=== PATIENT | male | born 1995 | race African-American/Black ===

== ENCOUNTER 2018-04-04 23:32 | Inpatient (IN) | payer BC, MEDICAID ==
[~2018-04-04] VITALS: Ht 165.1 cm; Wt 62.6 kg
[2018-04-04 23:58] LABS: MONOCYTES # (AUTO) 0.6 K/uL (0.1-1.0)
[2018-04-05] VITALS (7 sets, daily range): BP systolic 128–138; BP diastolic 71–86
[2018-04-05 00:07] LABS: BASOPHILS % (AUTO) 0.4 % (0.0-2.0); EOSINOPHILS % (AUTO) 1.8 % (1.0-6.0); HEMOGLOBIN 17.6 g/dL (13.5-17.5); LYMPHOCYTES # (AUTO) 4.2 K/uL (1.0-4.8); LYMPHOCYTES % (AUTO) 49.5 % (22.0-44.0); MEAN CORPUSCULAR HEMOGLOBIN 29.2 pg (26.0-34.0); MEAN CORPUSCULAR HGB CONC 34.4 G/dL (31.0-37.0); MEAN CORPUSCULAR VOLUME 85 fL (80-100); MONOCYTES % (AUTO) 6.9 % (2.0-9.0); NEUTROPHILS # (AUTO) 3.5 K/uL (1.8-7.7); NEUTROPHILS % (AUTO) 41.4 % (40.0-70.0); PLATELET COUNT (AUTO) 346 K/uL (150-450); RED BLOOD CELL COUNT(AUTO) 6.01 MIL/uL (4.50-5.90); RED CELL DISTRIBUTION WIDTH 12.9 % (11.5-14.5)
[2018-04-05 00:14] LABS: CALCIUM, TOTAL 8.8 mg/dL (8.8-10.5); CREATININE 1.48 mg/dL (0.60-1.30); POTASSIUM 3.6 mmol/L (3.5-5.1)
[2018-04-05 00:17] LABS: ALBUMIN 4.6 g/dL (3.4-5.0); BILIRUBIN,TOTAL 0.9 mg/dL (0.1-1.0); TOTAL PROTEIN, SERUM 8.5 g/dL (6.4-8.2)
[2018-04-05] MEDS ORDERED: HALOPERIDOL 5 MG TABLET PO PRN (00:45)
[2018-04-05 02:32] LABS: AMPHET/METH SCREEN,URINE NEGATIVE (NEGATIVE); BARBITURATE SCREEN, URINE NEGATIVE (NEGATIVE); BENZODIAZEPINES SCREEN,URINE NEGATIVE (NEGATIVE); CANNABINOID SCREEN,URINE NEGATIVE (NEGATIVE); COCAINE SCREEN,URINE NEGATIVE (NEGATIVE); METHADONE SCREEN, URINE NEGATIVE (NEGATIVE); OPIATE SCREEN,URINE NEGATIVE (NEGATIVE)
[2018-04-05 02:33] LABS: PHENCYCLIDINE SCREEN,URINE NEGATIVE (NEGATIVE)
[2018-04-05] MEDS: LORazepam 2 MG TABLET PO PRN (04:22)
[2018-04-05 07:40] LABS: HEMOGLOBIN A1C 5.4 % (4.5-6.2)
[2018-04-05 07:56] LABS: CHOL/HDL RATIO 5.8 (4.2-7.3); CHOLESTEROL 243 mg/dL (131-200); FREE T4 (FREE THYROXINE) 0.91 ng/dL (0.76-1.46); HDL CHOLESTEROL 42 mg/dL (40-60); THYROID STIMULATING HORMONE 1.87 uIU/mL (0.36-3.74); TRIGLYCERIDES 667 mg/dL (15-150)
[2018-04-05] MEDS: CITALOPRAM HYDROBROMIDE 20 MG TABLET PO SCH (12:11)
[2018-04-05] MEDS: SIMVASTATIN 10 MG TABLET PO SCH (20:13)
[2018-04-05] MEDS: ZOLPIDEM TARTRATE 10 MG TABLET PO PRN (20:58)
[2018-04-06 06:52] VITALS: BP 125/70
[2018-04-06 08:02] VITALS: BP 136/72
[2018-04-06] MEDS: CITALOPRAM HYDROBROMIDE 20 MG TABLET PO SCH (08:11)
[2018-04-06 16:19] VITALS: BP 134/78
[2018-04-06] MEDS: ZOLPIDEM TARTRATE 10 MG TABLET PO PRN (20:25)
[2018-04-06] MEDS: SIMVASTATIN 10 MG TABLET PO SCH (20:25)
[2018-04-06] MEDS: LORazepam 2 MG TABLET PO PRN (20:26)
[2018-04-07 06:29] VITALS: BP 130/75
[2018-04-07] MEDS: LORazepam 2 MG TABLET PO PRN (07:59)
[2018-04-07] MEDS: CITALOPRAM HYDROBROMIDE 20 MG TABLET PO SCH (07:59)
[2018-04-07 08:01] VITALS: BP 154/103
[2018-04-07] MEDS ORDERED: SIMV-259 PO (12:49)
[2018-04-07] MEDS ORDERED: CITA-106 PO (12:49)
== END 2018-04-07 13:05 | disposition home or self-care (01) | DRG 881 ==
LOC: EMS 23:33 → B3A 04-05 02:00
PROVIDERS: ADMIT Psychiatry & Neurology Child & Adolescent Psychiatry; ATTEND Psychiatry & Neurology Child & Adolescent Psychiatry
DX: F32.9 Major depressive disorder, single episode, unspecified (principal); N17.9 Acute kidney failure, unspecified; R45.851 Suicidal ideations; E78.5 Hyperlipidemia, unspecified; F41.9 Anxiety disorder, unspecified; R74.0 Nonspecific elevation of levels of transaminase and lactic acid dehydrogenase [LDH]; S61.512A Laceration without foreign body of left wrist, initial encounter; X78.1XXA Intentional self-harm by knife, initial encounter; Y93.89 Activity, other specified; Y92.89 Other specified places as the place of occurrence of the external cause; Y99.8 Other external cause status; Z79.899 Other long term (current) drug therapy
CPT/HCPCS: 80074; 83036; 84439; 84443; 99285; G0480

== ENCOUNTER 2018-05-20 18:19 | Inpatient (IN) | payer BC, MEDICAID ==
[~2018-05-20] VITALS: Ht 167.6 cm; Wt 59.0 kg
[~2018-05-20 18:19] MED LIST: CITA-106 PO; SIMV-259 PO
[2018-05-20 19:06] LABS: BASOPHILS % (AUTO) 0.3 % (0.0-2.0); HEMATOCRIT 45.9 % (41-53); HEMOGLOBIN 15.8 g/dL (13.5-17.5); LYMPHOCYTES # (AUTO) 2.6 K/uL (1.0-4.8); LYMPHOCYTES % (AUTO) 40.3 % (22.0-44.0); MEAN CORPUSCULAR HEMOGLOBIN 29.8 pg (26.0-34.0); MEAN CORPUSCULAR HGB CONC 34.3 G/dL (31.0-37.0); MEAN CORPUSCULAR VOLUME 87 fL (80-100); MONOCYTES # (AUTO) 0.5 K/uL (0.1-1.0); MONOCYTES % (AUTO) 8.3 % (2.0-9.0); NEUTROPHILS # (AUTO) 3.2 K/uL (1.8-7.7); NEUTROPHILS % (AUTO) 49.1 % (40.0-70.0); PLATELET COUNT (AUTO) 289 K/uL (150-450); RED BLOOD CELL COUNT(AUTO) 5.29 MIL/uL (4.50-5.90); RED CELL DISTRIBUTION WIDTH 13.3 % (11.5-14.5)
[2018-05-20 19:44] LABS: ALANINE AMINOTRANSFERASE 92 U/L (12-78); ALBUMIN 4.1 g/dL (3.4-5.0); ALKALINE PHOSPHATASE 130 U/L (46-116); ANION GAP 10 mmol/L (8-16); ASPARTATE AMINOTRANSFERASE 56 U/L (15-37); BILIRUBIN,TOTAL 0.3 mg/dL (0.1-1.0); CALCIUM, TOTAL 8.3 mg/dL (8.8-10.5); CARBON DIOXIDE 24 mmol/L (22-29); CHLORIDE 105 mmol/L (98-107); CREATININE 0.86 mg/dL (0.60-1.30); GLOMERULAR FILTR. RATE CALC > 60 mL/min (>60); GLUCOSE,RANDOM 101 mg/dL (70-110); POTASSIUM 4.2 mmol/L (3.5-5.1); SODIUM SERUM 139 mmol/L (136-145); TOTAL PROTEIN, SERUM 7.7 g/dL (6.4-8.2); UREA NITROGEN, BLOOD 12 mg/dL (7-18)
[2018-05-20] MEDS ORDERED: HALOPERIDOL 5 MG TABLET PO PRN (20:15)
[2018-05-21] VITALS (11 sets, daily range): BP systolic 115–140; BP diastolic 60–87
[2018-05-21] MEDS: ZOLPIDEM TARTRATE 10 MG TABLET PO PRN (03:01)
[2018-05-21] MEDS ORDERED: PNEUMOCOCCAL VACCINE POLYVALENT 0.5 ML VIAL [PPSV23] IM ONE (04:15)
[2018-05-21 08:49] LABS: CHOL/HDL RATIO 6.3 (4.2-7.3)
[2018-05-21] MEDS: LORazepam 2 MG TABLET PO PRN (16:22)
[2018-05-21] MEDS ORDERED: CloNIDine HCL 0.1 MG TABLET PO PRN (21:30)
[2018-05-21] MEDS ORDERED: PETROLATUM,WHITE 71 GM JELLY TP PRN (21:30)
[2018-05-21] MEDS ORDERED: BENZOCAINE/MENTHOL LOZENGE MM PRN (21:30)
[2018-05-21] MEDS ORDERED: IBUPROFEN 600 MG TABLET PO PRN (21:30)
[2018-05-21] MEDS ORDERED: ONDANSETRON HCL 4 MG TABLET PO PRN (21:30)
[2018-05-21] MEDS ORDERED: ALBUTEROL SULFATE HFA 90 MCG/PUFF 8 GM INHALER IH PRN (21:30)
[2018-05-21] MEDS ORDERED: BACITRACIN 28.4 GM OINTMENT TP PRN (21:30)
[2018-05-21] MEDS ORDERED: MAGNESIUM HYDROXIDE SUSPENSION 30 ML UDCUP PO PRN (21:30)
[2018-05-21] MEDS ORDERED: OMEPRAZOLE 20 MG CAPSULE PO PRN (21:30)
[2018-05-21] MEDS ORDERED: ACETAMINOPHEN 325 MG TABLET PO PRN (21:30)
[2018-05-21] MEDS ORDERED: LOPERAMIDE HCL 2 MG CAPSULE PO PRN (21:30)
[2018-05-21] MEDS ORDERED: DOCUSATE SODIUM 100 MG CAPSULE PO PRN (21:30)
[2018-05-21] MEDS ORDERED: MAG HYDROX/AL HYDROX/SIMETH ES 30 ML SUSPENSION UDCUP PO PRN (21:30)
[2018-05-21] MEDS ORDERED: GLUCAGON,HUMAN RECOMBINANT 1 MG VIAL IM PRN (21:45)
[2018-05-21] MEDS ORDERED: INSULIN LISPRO 100 UNITS/ML SQ PRN (21:45)
[2018-05-22 00:58] VITALS: BP 125/73
[2018-05-22 02:56] VITALS: BP 125/73
[2018-05-22 05:16] VITALS: BP 133/77
[2018-05-22 07:13] LABS: GLUCOMETER DEV NAME(LOC) BV2N3; GLUCOSE,POINT OF CARE 94 MG/DL (70-110)
[2018-05-22 08:09] VITALS: BP 124/68
[2018-05-22 08:15] VITALS: BP 124/68
[2018-05-22] MEDS: DIVALPROEX SODIUM 500 MG DR TABLET PO SCH ×2 (09:02→16:19)
[2018-05-22] MEDS: OMEGA-3/DHA/EPA/FISH OIL 1,000 MG CAPSULE PO SCH (09:02)
[2018-05-22] MEDS: CITALOPRAM HYDROBROMIDE 20 MG TABLET PO SCH (09:02)
[2018-05-22 11:34] LABS: GLUCOMETER DEV NAME(LOC) BV2N3; GLUCOSE,POINT OF CARE 95 MG/DL (70-110)
[2018-05-22 16:00] VITALS: BP 135/69
[2018-05-22] MEDS: LORazepam 2 MG TABLET PO PRN (16:18)
[2018-05-22 16:38] LABS: GLUCOMETER DEV NAME(LOC) BV2N3; GLUCOSE,POINT OF CARE 93 MG/DL (70-110)
[2018-05-22 20:20] LABS: GLUCOMETER DEV NAME(LOC) BV2N3; GLUCOSE,POINT OF CARE 107 MG/DL (70-110)
[2018-05-22] MEDS: SIMVASTATIN 10 MG TABLET PO SCH (20:28)
[2018-05-23 02:45] VITALS: BP 125/69
[2018-05-23 07:09] LABS: GLUCOMETER DEV NAME(LOC) BV2N3; GLUCOSE,POINT OF CARE 93 MG/DL (70-110)
[2018-05-23 08:37] VITALS: BP 138/60
[2018-05-23 08:38] VITALS: BP 138/60
[2018-05-23] MEDS: DIVALPROEX SODIUM 500 MG DR TABLET PO SCH ×2 (09:37→16:47)
[2018-05-23] MEDS: CITALOPRAM HYDROBROMIDE 20 MG TABLET PO SCH (09:37)
[2018-05-23] MEDS: OMEGA-3/DHA/EPA/FISH OIL 1,000 MG CAPSULE PO SCH (09:37)
[2018-05-23 11:53] LABS: GLUCOMETER DEV NAME(LOC) BV2N3; GLUCOSE,POINT OF CARE 97 MG/DL (70-110)
[2018-05-23 16:29] LABS: GLUCOMETER DEV NAME(LOC) BV2N3; GLUCOSE,POINT OF CARE 103 MG/DL (70-110)
[2018-05-23 16:38] VITALS: BP 127/73
[2018-05-23 16:39] VITALS: BP 127/73
[2018-05-23 20:29] LABS: GLUCOMETER DEV NAME(LOC) BV2N3; GLUCOSE,POINT OF CARE 106 MG/DL (70-110)
[2018-05-23] MEDS: SIMVASTATIN 10 MG TABLET PO SCH (20:48)
[2018-05-23] MEDS: ZOLPIDEM TARTRATE 10 MG TABLET PO PRN (20:48)
[2018-05-24 06:20] VITALS: BP 121/68
[2018-05-24 06:49] LABS: GLUCOMETER DEV NAME(LOC) BV2N3; GLUCOSE,POINT OF CARE 88 MG/DL (70-110)
[2018-05-24 08:56] VITALS: BP 129/77
[2018-05-24] MEDS: OMEGA-3/DHA/EPA/FISH OIL 1,000 MG CAPSULE PO SCH (09:37)
[2018-05-24] MEDS: CITALOPRAM HYDROBROMIDE 20 MG TABLET PO SCH (09:38)
[2018-05-24] MEDS: DIVALPROEX SODIUM 500 MG DR TABLET PO SCH (09:38)
[2018-05-24] MEDS ORDERED: DIVA-78 PO (10:01)
[2018-05-24] MEDS ORDERED: OMEG-135 PO (10:01)
== END 2018-05-24 11:05 | disposition home or self-care (01) | DRG 885 ==
LOC: EMS 18:20 → B2X 23:30
PROVIDERS: ADMIT Psychiatry & Neurology Psychiatry; ATTEND Psychiatry & Neurology Psychiatry
PROC: 3E0234Z Introduction of Serum, Toxoid and Vaccine into Muscle, Percutaneous Approach (ICD-10-PCS; principal; 2018-05-21)
PROC: 3E02340 Introduction of Influenza Vaccine into Muscle, Percutaneous Approach (ICD-10-PCS; 2018-05-21)
DX: F25.9 Schizoaffective disorder, unspecified (principal); F33.1 Major depressive disorder, recurrent, moderate; R45.851 Suicidal ideations; F17.210 Nicotine dependence, cigarettes, uncomplicated; F10.10 Alcohol abuse, uncomplicated; E78.1 Pure hyperglyceridemia; E11.9 Type 2 diabetes mellitus without complications; E78.5 Hyperlipidemia, unspecified; F41.9 Anxiety disorder, unspecified; G47.00 Insomnia, unspecified; K59.00 Constipation, unspecified; R45.850 Homicidal ideations; Z91.5 Personal history of self-harm; Z23 Encounter for immunization
CPT/HCPCS: 80074; 83036; 90686; 90732; 99285; 99406; G0480